=== PATIENT | male | born 1990 | race Caucasian/White ===

== ENCOUNTER 2024-08-03 14:26 | Emergency (ER) | payer MEDICAID ==
[~2024-08-03] VITALS: Ht 172.7 cm; Wt 77.3 kg
[2024-08-03] MEDS ORDERED: ketorolac trometh 15mg/ml vial 15 MG/ML ML IM ONE (16:10)
[2024-08-03] MEDS ORDERED: IBUP-862 PO (16:19)
[2024-08-03] MEDS ORDERED: ONDA-245 PO (16:19)
[2024-08-03] MEDS: ondansetron 4mg rapidly disintigrating tab PO ONE (16:30)
[2024-08-03] MEDS: ketorolac trometh 30MG/ML vial 30 MG/ML VIAL IM ONE (16:31)
[2024-08-03 16:36] VITALS: BP 116/74; PULSE 94; RESP 14; TEMP 98.8; O2SAT 95
== END 2024-08-03 16:37 | disposition home or self-care (01) ==
LOC: ER 14:27
DX: R51.9 Headache, unspecified (principal); F12.90 Cannabis use, unspecified, uncomplicated
CPT/HCPCS: 96372; 99283; J1885